=== PATIENT | female | born 1975 | race Caucasian/White ===

== ENCOUNTER 2018-02-04 10:41 | Day surgery (SDC) | payer BC ==
[~2018-02-04 10:41] MED LIST: Sodium Chloride 0.9% 10 ML Syringe FLUSH PRN; Sodium Chloride 0.9% 2.5 ML Syringe FLUSH PRN
--- NOTE | 2018-02-04 11:20 | PCM.PREANE ---
Preanesthetic Assessment - Anesthesia/Transfusion/Family Hx Anesthesia History: Prior Anesthesia Without Reaction Family History of Anesthesia Reaction: No Transfusion History: No Prior Transfusion(s) Intubation History: Unknown - Review of Systems General: No Symptoms Pulmonary: No Symptoms Cardiovascular: No Symptoms Gastrointestinal: No Symptoms Neurological: No Symptoms Other: Reports: None - Physical Assessment Height: 1.68 m Weight: 78.018 kg ASA Class: 2 Mental Status: Alert & Oriented x3 Airway Class: Mallampati = 2 Dentition: Reports: Normal Dentition Thyro-Mental Finger Breadths: 3 Mouth Opening Finger Breadths: 3 ROM/Head Extension: Full Lungs: Clear to Auscultation, Normal Respiratory Effort Cardiovascular: Regular Rate, Regular Rhythm - Allergies Allergies/Adverse Reactions: Allergies Allergy/AdvReac Type Severity Reaction Status Date / Time latex Allergy Rash Verified 02/04/18 08:26 Penicillins Allergy "father Verified 02/04/18 08:26 was allergic to PCN" Sulfa (Sulfonamide Allergy Rash Verified 02/04/18 08:26 Antibiotics) - Blood Blood Available: No - Anesthesia Plan Pre-Op Medication Ordered: None - Acknowledgements Anesthesia Type Planned: General Anesthesia Pt an Appropriate Candidate for the Planned Anesthesia: Yes Alternatives and Risks of Anesthesia Discussed w Pt/Guardian: Yes Pt/Guardian Understands and Agrees with Anesthesia Plan: Yes PreAnesthesia Questionnaire HEENT History: Reports: Other (See Below) Other HEENT History: wears glasses/contacts Cardiovascular History: Reports: High Cholesterol Gastrointestinal History: Reports: Other (See Below) Other Gastrointestinal History: occasional heartburn Genitourinary History: Reports: None [employer]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: , Other (See Below) Other OB/BYN History: ETOP 1996 Endocrine/Metabolic History: Reports: Hypothyroidism - Past Surgical History Head Surgeries/Procedures: Reports: None HEENT Surgical History: Reports: Oral Surgery Female Surgical History: Reports: LEEP, Other (See Below) ( ETOP ) - SUBSTANCE USE Smoking Status *Q: Never Smoker Recreational Drug Use History: No - HOME MEDS Home Medications: Home Meds Calcium Carbonate 1,000 mg PO DAILY 02/04/18 [History] Cholecalciferol (Vitamin D3) [Vitamin D3] 2,000 units PO DAILY 02/04/18 [History ] Fish Oil/[place]-3 Fatty Acids [Fish Oil 1,000 MG] 1,000 mg PO DAILY 02/04/18 [ History] Folic Acid 1 tab PO DAILY 02/04/18 [History] PNV95/Ferrous Fumarate/FA [ Vitamin Tablet] 1 tab PO DAILY 02/04/18 [ History] Thyroid,Pork [[place] Thyroid] 105 mg PO DAILY 02/04/18 [History] - CURRENT (IN HOUSE) MEDS Current Meds: Current Medications Sodium Chloride (Saline Flush) 10 ml FLUSH ASDIRECTED PRN PRN Reason: Keep Vein Open Sodium Chloride (Saline Flush) 2.5 ml FLUSH ASDIRECTED PRN PRN Reason: Keep Vein Open
[2018-02-04] MEDS ORDERED: Propofol 200 MG/20 ML SDV ONE (11:37)
[2018-02-04] MEDS ORDERED: fentaNYL 100 MCG/2 ML SDV ONE (11:37)
[2018-02-04] MEDS ORDERED: Midazolam 1 MG/ML 2 ML SDV ONE (11:37)
[2018-02-04] MEDS ORDERED: Ondansetron 4 MG/2 ML SDV ONE (12:10)
[2018-02-04] MEDS ORDERED: Ketorolac 30 MG/ML SDV ONE (12:20)
--- NOTE | 2018-02-04 12:30 | PCM.OPNOTE ---
- General Post-Op/Procedure Note Date of Surgery/Procedure: 02/04/18 Operative Procedure(s): Suction D&C Findings: Products of conception, 9 cm uterine cavity Pre Op Diagnosis: Missed Post-Op Diagnosis: Same Anesthesia Technique: General Mask Primary Surgeon: Tana Saravia Pathology: Products of conception Fluid Replacement, Intraop: 700 EBL in mLs: 100 Complications: None known Condition: Good Free Text/Narrative:: Dictation [id number] patient declines chromosomal analysis of tissue
[2018-02-04] MEDS ORDERED: Lactated Ringers 1,000 ML IV SCH (12:45)
--- NOTE | 2018-02-04 13:05 | PCM.POSTAN ---
POST ANESTHESIA ASSESSMENT - MENTAL STATUS Mental Status: Alert, Oriented - RESPIRATORY Respiratory Status: Respiratory Rate WNL, Airway Patent, O2 Saturation Stable - CARDIOVASCULAR CV Status: Pulse Rate WNL, Blood Pressure Stable - GASTROINTESTINAL GI Status: No Symptoms - POST OP HYDRATION Hydration Status: Adequate & Stable
--- NOTE | 2018-02-04 13:05 | PCM48HPAN ---
Post Anesthesia Note - EVALUATION WITHIN 48HRS OF ANESTHETIC Vital Signs in Normal Range: Yes Patient Participated in Evaluation: Yes Respiratory Function Stable: Yes Airway Patent: Yes Cardiovascular Function Stable: Yes Hydration Status Stable: Yes Pain Control Satisfactory: Yes Nausea and Vomiting Control Satisfactory: Yes Mental Status Recovered: Yes Resp Rate: 12
--- NOTE | 2018-02-04 13:21 | OR ---
SURGEON: Tana Saravia M.D. DATE OF PROCEDURE: 02/04/2018 PREOPERATIVE DIAGNOSIS: Missed . POSTOPERATIVE DIAGNOSIS: Missed . PROCEDURE: Suction D and C ANESTHESIA: General mask. FLUIDS: 900 mL of crystalloid. ESTIMATED BLOOD LOSS: 100 mL. COMPLICATIONS: None. FINDINGS: Products of conception. DISPOSITION: The patient to PACU. SPECIMEN: Pathology. PROCEDURE IN DETAIL: Haleigh is a 42-year-old G3, P1-0-1-1, at approximately 11 weeks gestational age by LMP. However, on ultrasound she was only found to have a 6-week embryonic demise. The patient opted to wait conservatively and with no further evidence for miscarriage and following quant hCG. She would like to proceed with D and C. Risks of the procedure have been discussed, and proper consent obtained. The patient was taken to the operating room where she underwent general mask, was placed in modified dorsal lithotomy position, was prepped and draped in the usual sterile fashion. SCDs to lower extremities. Bladder was drained. Time- out was performed. Speculum was introduced in the vagina. Anterior lip of the cervix was grasped with an Allis clamp. Cervix gently dilated to 9 mm. Uterus sounded to approximately 9 cm using 8 mm curved curette, this was gently introduced into the uterine cavity to the fundus and with suction, was able to evacuate the uterine cavity of products of conception. Once felt the cavity was adequately evacuated, gentle sharp curettage was performed. Hemostasis appeared evident. All specimens to pathology. All instruments were removed from the vagina. Sponge and needle counts were correct x2. The patient will go to PACU in stable condition. Specimens to pathology. JUNG / NURY /[id number]
== END 2018-02-04 14:00 | disposition home or self-care (01) ==
LOC: MW.SDS 10:41
PROVIDERS: ATTEND Obstetrics & Gynecology
DX: O02.1 Missed abortion (principal); E03.9 Hypothyroidism, unspecified; E78.00 Pure hypercholesterolemia, unspecified; E78.5 Hyperlipidemia, unspecified; Z79.899 Other long term (current) drug therapy; Z88.0 Allergy status to penicillin; Z88.2 Allergy status to sulfonamides; Z91.040 Latex allergy status
CPT/HCPCS: 36415; 59820; 85027; 86850; 86900; 86901; J1885; J2250; J2405; J3010; J7120; 88305; J2704